=== PATIENT | male | born 1965 | race Caucasian/White ===

== ENCOUNTER → 2016-12-02 | Outpatient (CLI) | payer BC ==
--- NOTE | 2016-12-03 14:53 | PE ---
EXAMINATION TYPE: PET CT fusion skull to thigh DATE OF EXAM: 12/02/2016 12:54 PM COMPARISON: NONE Prior PET/CT: None at this location. HISTORY: Tonsil cancer TECHNIQUE: Following the intravenous administration of 12.7 mCi of F-18 FDG, whole body images are p erformed from the skull base to the midthigh. Images are reviewed on the computer in the coronal, ax ial, and sagittal planes. Reconstructed rotating images are created on independent workstation and r eviewed on the computer. A localization and attenuation correction CT is performed in conjunction w ith the PET scan. DLP: 461.58 and 64.03 mGycm SCAN: Initial Scan Blood glucose: 87 mg/dL Average Mediastinum SUV: 1.9 Average Liver SUV: 2.9 FINDINGS: NECK: There is increased uptake within the region of the right tonsil with an SUV of 7.2 compatible with neoplasm. There is increased uptake within the soft tissues just posterior to the left and right anterior mandible. This has an SUV value of 6 on the right and 7.2. Dedicated images were obtained through the head and neck. Uptake of these lymph nodes is between 2.5 and 3.3 on the right. This could reflect Inflammatory or early metastatic disease. THORAX: No abnormal uptake. ABDOMEN: No abnormal uptake PELVIS: No abnormal uptake OSSEOUS STRUCTURES: No abnormal uptake LOCALIZATION CT: Calcified granuloma within the right posterior base calcified lymphadenopathies medi astinum. There multiple lymph nodes within the parapharyngeal spaces bilaterally, greater on the righ t. These are nonspecific. COMPARISON: None IMPRESSION: 1. Increased uptake within the right tonsil compatible with the patient's reported tonsillar cancer. 2. Multiple lymph nodes within the parapharyngeal spaces, jugulodigastric, and carotid sheath regions bilaterally and nonspecific uptake. This is slightly greater on the right and early metastasis is no t excluded. 3. There is focal increased uptake within the soft tissues posterior to the left right portions of th e mandible apex. This is markedly intense uncertain etiology. Definite corresponding soft tissue abno rmality is not identified
== END | disposition home or self-care (01) ==
LOC: RADPETMAIN 10:21
PROVIDERS: ATTEND Otolaryngology
DX: C09.9 Malignant neoplasm of tonsil, unspecified (principal)
CPT/HCPCS: 78815; A9552

== ENCOUNTER 2016-12-22 15:09 | Day surgery (SDC) | payer BC ==
[2016-12-22 16:07] VITALS: RESP 16; TEMP 98.1
--- NOTE | 2016-12-22 16:17 | US ---
Ultrasound fine-needle aspiration lymph node HISTORY: Abnormal PET/CT Maximal barrier technique was utilized. Correlation to PET CT for November 2016 Ultrasound was used with sterile technique. The skin overlying the abnormal node in the right neck wa s localized with ultrasound and the overlying skin prepped and draped. Lidocaine used for local anest hesia. 5 passes with a 25-gauge needle were made into the node under direct ultrasound guidance and a spirated specimen submitted to cytology. Following the procedure hemostasis achieved. There is no imm ediate complication. Patient was discharged in stable. IMPRESSION: Status post ultrasound-guided fine-needle aspiration right-sided neck lymph node, patholo gy pending. This procedure performed by the undersigned.
[2016-12-22 16:22] VITALS: BP 133/83; PULSE 75
== END 2016-12-22 16:21 | disposition home or self-care (01) ==
LOC: RADPROMAIN 15:09
PROVIDERS: ATTEND Internal Medicine Hematology & Oncology
DX: R59.9 Enlarged lymph nodes, unspecified (principal); C09.1 Malignant neoplasm of tonsillar pillar (anterior) (posterior)
CPT/HCPCS: 10022; 38505; 76942; 88173; 88305

== ENCOUNTER 2017-01-14 00:15 | Observation (INO) | payer BC ==
[2017-01-14] MEDS ORDERED: ONDANSETRON 4 MG/2 ML VIAL IVP STA (00:37)
[2017-01-14] MEDS ORDERED: SODIUM CHLORIDE 0.9% 1,000 ML IV STA ×3 (00:37→01:38)
--- NOTE | 2017-01-14 00:37 | ED ---
Nausea/Vomiting/Diarrhea HPI - General Chief complaint: Nausea/Vomiting/Diarrhea Stated complaint: Nauseous/Dehydrated - Cancer Pt (RT) Time Seen by Provider: 01/14/17 00:36 Source: patient Mode of arrival: ambulatory Limitations: no limitations - History of Present Illness Initial comments: Patient is a 51-year-old male with chief complaint of dehydration and general fatigue. She reports that he is currently undergoing radiation treatment for tonsillar cancer. He reports he's had his tonsils removed and is going through radiation treatments. Next radiation treatment is Sunday. He states that over the past 3 days he is had a hard time swallowing anything and is had dry heaves. Patient reports that he has at home Zofran but it is not helping. Patient states he is diagnosed with oral thrush. He reports the Magic mouthwash his throat is painful with swallowing. states that over the past 2 days only had a boost shake to keep him hydrated. She reports that he has 2 weeks left of radiation treatment. Patient reports he just feels generally ill and fatigued. Denies any abdominal pain, fevers, chest pain, shortness of breath, headache, vision changes, dizziness or lightheadedness. He reports that he was only able to urinate a few drops earlier today. - Related Data Home Medications Medication Instructions Recorded Confirmed Cholecalciferol [Vitamin D3] 2,000 unit PO DAILY 12/22/16 01/14/17 Citalopram Hydrobromide [CeleXA] 20 mg PO DAILY 12/22/16 01/14/17 Ibuprofen [Motrin] 800 mg PO BID PRN 12/22/16 01/14/17 Levothyroxine Sodium [Synthroid] 25 mcg PO DAILY 12/22/16 01/14/17 Tamsulosin HCl [Flomax] 0.4 mg PO DAILY 12/22/16 01/14/17 Fluconazole [Diflucan] 100 mg PO DAILY 01/14/17 01/14/17 Hydrocodone/Acetaminophen [[place] 1 tab PO Q6HR PRN 01/14/17 01/14/17 5-325] Ondansetron [Zofran ODT] 8 mg PO Q8HR 01/14/17 01/14/17 Allergies Allergy/AdvReac Type Severity Reaction Status Date / Time No Known Allergies Allergy Verified 01/14/17 00:23 Review of Systems ROS Statement: Those systems with pertinent positive or pertinent negative responses have been documented in the HPI. ROS Other: All systems not noted in ROS Statement are negative. Past Medical History Past Medical History: Cancer, Hypertension, Prostate Disorder, Supraventricular Tachycardia (SVT), Thyroid Disorder Additional Past Medical History / Comment(s): RIGHT TONSIL CANCER. History of Any Multi-Drug Resistant Organisms: None Reported Past Surgical History: Orthopedic Surgery, Tonsillectomy Additional Past Surgical History / Comment(s): RIGHT TONSILLECTOMY. RIGHT HAND SURGERY. 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 Past Drug Use History: None Reported Additional Drug Use History / Comment(s): QUIT SMOKING IN 1999. - Past Family History Mother Family Medical History: No Reported History Father Family Medical History: Cancer Additional Family Medical History / Comment(s): PROSTATE CANCER. General Exam - General Exam Comments Initial Comments: Pleasant 31-year-old male. No distress. Limitations: no limitations General appearance: alert, in no apparent distress Head exam: Present: atraumatic, normocephalic, normal inspection Eye exam: Present: normal appearance, PERRL, EOMI. Absent: scleral icterus, conjunctival injection, periorbital swelling ENT exam: Present: mucous membranes moist. Absent: normal exam, normal oropharynx (Erythematous injected oropharynx. Patient has a white film over the oropharynx insistent with thrush.) Neck exam: Present: normal inspection. Absent: tenderness, meningismus, lymphadenopathy Respiratory exam: Present: normal lung sounds bilaterally. Absent: respiratory distress, wheezes, rales, rhonchi, stridor Cardiovascular Exam: Present: regular rate, normal rhythm, normal heart sounds. Absent: systolic murmur, diastolic murmur, rubs, gallop, clicks GI/Abdominal exam: Present: soft, normal bowel sounds. Absent: distended, tenderness, guarding, rebound, rigid Extremities exam: Present: normal inspection, full ROM, normal capillary refill. Absent: tenderness, pedal edema, joint swelling, calf tenderness Back exam: Present: normal inspection Neurological exam: Present: alert, oriented X3, CN II-XII intact Psychiatric exam: Present: normal affect, normal mood Skin exam: Present: warm, dry, intact, normal color. Absent: rash Course Vital Signs 01/14/17 00:20 Temperature 98.8 F Pulse Rate 92 Respiratory 18 Rate Blood Pressure 118/79 O2 Sat by Pulse 100 Oximetry Medical Decision Making - Medical Decision Making Pleasant 51-year-old male chief complaint of dehydration unable to tolerate fluids and dry heaving and nausea for 3 days. Patient is currently undergoing radiation treatments for tonsillar cancer. Patient states that he is also diagnosed with oral thrush. Patient states that he has only been able to have one boost shake throughout the whole day today. Patient continues to dry heave feel nauseated. Patient was given 2 L bolus and lab work was obtained. Patient did have elevated BUN/creatinine of being a 26 any 1.3. Patient states that Dr. Ezequiel Green and [facility] during his radiation treatments. Patient continues to dry heave and feel nauseated despite Zofran and Reglan and Benadryl. Patient was then started on maintenance rates 150 cc an hour. Discussed the case with Dr. Rosen. I feel is he needs to be monitored for the next 24 hours for hydration and pain management. Patient is concerned that he will not be able to be discharged by Sunday for his radiation treatments. He is concerned if he misses when he would have to start over again. Patient agrees to being admitted at this time for nausea medication and IV hydration. - Lab Data Result diagrams: 01/14/17 00:59 01/14/17 00:59 Lab Results 01/14/17 01/14/17 01/14/17 Range/Units 00:59 00:59 00:59 WBC 4.8 (3.8-10.6) k/uL RBC 5.59 (4.30-5.90) m/uL Hgb 16.7 (13.0-17.5) gm/dL Hct 49.3 (39.0-53.0) % MCV 88.1 (80.0-100.0) fL MCH 29.8 (25.0-35.0) pg MCHC 33.8 (31.0-37.0) g/dL RDW 13.6 (11.5-15.5) % Plt Count 208 (150-450) k/uL Neutrophils % 75 % Lymphocytes % 7 % Monocytes % 10 % Eosinophils % 4 % Basophils % 1 % Neutrophils # 3.6 (1.3-7.7) k/uL Lymphocytes # 0.4 L (1.0-4.8) k/uL Monocytes # 0.5 (0-1.0) k/uL Eosinophils # 0.2 (0-0.7) k/uL Basophils # 0.1 (0-0.2) k/uL Sodium 141 (137-145) mmol/L Potassium 4.4 (3.5-5.1) mmol/L Chloride 102 (98-107) mmol/L Carbon Dioxide 25 (22-30) mmol/L Anion Gap 14 mmol/L BUN 26 H (9-20) mg/dL Creatinine 1.30 H (0.66-1.25) mg/dL Est GFR (MDRD) Af Amer >60 (>60 ml/min/1.73 sqM) Est GFR (MDRD) Non-Af 58 (>60 ml/min/1.73 sqM) Glucose 104 H (74-99) mg/dL Calcium 10.0 (8.4-10.2) mg/dL Total Bilirubin 1.1 (0.2-1.3) mg/dL AST 28 (17-59) U/L ALT 47 (21-72) U/L Alkaline Phosphatase 71 (38-126) U/L Total Protein 7.7 (6.3-8.2) g/dL Albumin 4.3 (3.5-5.0) g/dL Amylase 73 (30-110) U/L Lipase 217 (23-300) U/L Urine Color Yellow Urine Appearance Clear (Clear) Urine pH 6.5 (5.0-8.0) Ur Specific [place] 1.026 (1.001-1.035) Urine Protein 1+ H (Negative) Urine Glucose (UA) Negative (Negative) Urine Ketones Negative (Negative) Urine Blood Negative (Negative) Urine Nitrite Negative (Negative) Urine Bilirubin Negative (Negative) Urine Urobilinogen 2.0 (<2.0) mg/dL Ur Leukocyte Esterase Small H (Negative) Urine RBC <1 (0-5) /hpf Urine WBC 22 H (0-5) /hpf Ur Squamous Epith Cells <1 (0-4) /hpf Hyaline Casts 3 H (0-2) /lpf Urine Mucus Many H (None) /hpf Disposition Clinical Impression: Tonsillar cancer, Dehydration due to radiation, Nausea & vomiting Disposition: ADMITTED IP TO THIS HOSP Condition: Stable Time of Disposition: 02:36
[2017-01-14 01:11] LABS: Basophils # (A) 0.1 k/uL (0-0.2); Basophils % (A) 1 %; CH 30.3; CHCM 34.5; Eosinophils # (A) 0.2 k/uL (0-0.7); Eosinophils % (A) 4 %; HCT 49.3 % (39.0-53.0); HDW 2.47; HGB 16.7 gm/dL (13.0-17.5); Luc # (Auto) 0.14; Luc % (Auto) 3; Lymphocytes # (A) 0.4 k/uL (1.0-4.8); Lymphocytes % (A) 7 %; MCH 29.8 pg (25.0-35.0); MCHC 33.8 g/dL (31.0-37.0); MCV 88.1 fL (80.0-100.0); Mean Platelet Volume 7.3; Monocytes # (A) 0.5 k/uL (0-1.0); Monocytes % (A) 10 %; Neutrophils # (A) 3.6 k/uL (1.3-7.7); Neutrophils % (A) 75 %; RBC 5.59 m/uL (4.30-5.90); RDW 13.6 % (11.5-15.5); WBC 4.8 k/uL (3.8-10.6); WBC (Perox) 4.68
[2017-01-14 01:18] LABS: Appearance,Urine Clear (Clear); Bilirubin,Urine Negative (Negative); Glucose,Urine (UA) Negative (Negative); Ketones,Urine Negative (Negative); Leukocyte Esterase,Urine Small (Negative); Mucus,Urine Many /hpf; Nitrite,Urine Negative (Negative); PH, Urine 6.5 (5.0-8.0); Particle Count 10766; Protein,Urine 1+ (Negative); RBC,Urine <1 /hpf (0-5); Specific Gravity,Urine 1.026 (1.001-1.035); Squamous Epithelial Cell,Urine <1 /hpf (0-4); UA Billing (MACRO vs. MICRO) MICRO; WBC,Urine 22 /hpf (0-5)
[2017-01-14 01:25] LABS: ALT 47 U/L (21-72); AST 28 U/L (17-59); Alkaline Phosphatase 71 U/L (38-126); Amylase 73 U/L (30-110); Anion Gap 14 mmol/L; Blood Urea Nitrogen 26 mg/dL (9-20); Carbon Dioxide 25 mmol/L (22-30); Chloride 102 mmol/L (98-107); Glucose 104 mg/dL (74-99); Non-African American GFR(MDRD) 58 (>60 ml/min/1.73 sqM); Potassium 4.4 mmol/L (3.5-5.1); Sodium 141 mmol/L (137-145); Total Bilirubin 1.1 mg/dL (0.2-1.3); Total Protein 7.7 g/dL (6.3-8.2)
[2017-01-14] MEDS ORDERED: METOCLOPRAMIDE 5 MG/ML 2 ML VIAL IVP STA (01:49)
[2017-01-14] MEDS ORDERED: diphenhydrAMINE 50 MG/ML 1 ML VIAL IVP STA (01:49)
[2017-01-14] MEDS ORDERED: HYDROmorphone 1 MG/ML 1 ML SYRINGE IVP STA (02:20)
[2017-01-14] MEDS ORDERED: LIDOCAINE VISCOUS 300 MG/15 ML CUP MUCOUS MEM ONE (02:28)
[2017-01-14] MEDS ORDERED: BENZOCAINE/MENTHOL LOZENG 1 EACH LOZENGE MUCOUS MEM PRN (02:39)
[2017-01-14] MEDS ORDERED: HYDROmorphone 1 MG/ML 1 ML SYRINGE IV PRN (02:39)
[2017-01-14] MEDS ORDERED: NALOXONE 0.4 MG/ML 1 ML VIAL IV PRN (02:39)
[2017-01-14] MEDS ORDERED: ONDANSETRON 4 MG/2 ML VIAL IVP PRN (02:39)
[2017-01-14] MEDS ORDERED: KETOROLAC 30 MG/ML 1 ML VIAL IVP PRN (02:39)
[2017-01-14] MEDS: SODIUM CHLORIDE 0.9% 1,000 ML IV SCH ×4 (02:43→20:53)
[2017-01-14] MEDS: LEVOTHYROXINE 25 MCG TAB PO SCH (08:22)
[2017-01-14] MEDS: FLUCONAZOLE 100 MG TAB PO SCH (08:22)
[2017-01-14] MEDS: CITALOPRAM HYDROBROMIDE 20 MG TAB PO SCH (08:22)
[2017-01-14] MEDS: TAMSULOSIN 0.4 MG CAP.ER.24H PO SCH (09:38)
[2017-01-14] MEDS: ACETAMINOPHEN TAB 325 MG TAB PO PRN ×2 (10:04→19:30)
--- NOTE | 2017-01-14 12:42 | HP ---
DATE OF ADMISSION: 01/14/2017 CHIEF COMPLAINT: Nausea and dehydration with decreased oral intake. HISTORY OF PRESENT ILLNESS: This is a 51-year-old male with recent diagnosis of tonsillar cancer back in November 2016, status post tonsillectomy and radiation therapy, presents to the hospital with intractable nausea, discomfort to his throat, and dehydration. In the ER, the patient was extremely dehydrated on physical examination with evidence of increase in creatinine and BUN. Started on IV fluid and admitted to the medical floor. Patient currently said that he feels much better after receiving the fluid, but still not able to drink or eat, given the pain in his throat. Patient said that he shelter from the end of his radiation, followed by the surgery, and said that margins from the previous surgery were clear. PET scan was done by Dr. Watts who said that there is a suspicious lymph node, multiple biopsies were obtained from that lymph node that came back negative. The decision was made to continue only with 35 sessions of radiations and no chemo after that. The patient lost 30 pounds over the last 2 months and said that he is still able to take his Ensure but very difficult for regular food. Patient currently complaining of headache, but said that it came just because of not being able to sleep during the night with his new environment in the hospital. The patient required no pain medication and said that he would rather go home in the morning after finishing his fluid infusion. REVIEW OF SYSTEMS: All 14 systems reviewed and negative except as above. HOME MEDICATIONS: 1. Vitamin D. 2. Celexa. 3. Ibuprofen. 4. Flomax. 5. Levothyroxine. 6. Diflucan. 7. Home as needed. 8. Zofran. ALLERGIES: No known drug allergies. PAST MEDICAL AND SURGICAL HISTORY: 1. Tonsillar cancer diagnosed in November 2016. 2. Hypertension. 3. Benign prostatic hypertrophy. 4. Supraventricular tachycardia status post ablation in early . 5. Half of his thyroid was resected with residual hypothyroidism. 6. Tonsillectomy due to right tonsillar cancer. 7. Left hand surgery. 8. Anxiety. SOCIAL HISTORY: Patient quit cigarettes 20 years ago. Denied alcohol or drug abuse. FAMILY HISTORY: Father with prostate cancer. PHYSICAL EXAMINATION: VITAL SIGNS: Reviewed and stable. HEENT: Atraumatic, normocephalic. PERRLA. NECK: Supple, no masses. No thyromegaly. LUNGS: Clear to auscultation bilaterally. HEART: Normal S1, S2. ABDOMEN: Soft, no tenderness, positive bowel sounds in all 4 quadrants. EXTREMITIES: Lower extremity no edema. SKIN: No rash. NEURO: Intact. Cranial nerves 2 through 12 intact. Normal deep tendon reflexes and sensation. PSYCH: Alert, and oriented x3. IMAGING AND LABS: CBC normal. Chem-7 showed slight elevation and creatinine at 1.30, BUN 26, glucose 104. Liver function tests within acceptable range. ASSESSMENT AND PLAN: 1. Intractable nausea and dehydration. We will continue with Zofran as needed. Will continue with aggressive hydration and we will follow-up on patient's blood work in the morning. We will consider discharging patient at 9:00 in the morning given the radiation scheduled for 3 in the afternoon. Plan discussed with the patient who agreed to the above. 2. Mild acute kidney injury. We will continue monitoring. Repeat blood work in the morning. 3. Tonsillar cancer, status post resection with radiation therapy, to be followed by Dr. Watts as outpatient. 4. Hypothyroidism. Continue home medication. 5. Hypertension, under fair control. 6. Benign prostatic hypertrophy. Will continue with the Flomax. 7. Anxiety. Will continue with Celexa. 8. Discharge planning in the morning after done with hydration and encourage oral intake at this point.
[2017-01-14 22:09] VITALS: TEMP 98.3
[2017-01-15] MEDS: SODIUM CHLORIDE 0.9% 1,000 ML IV SCH (03:30)
[2017-01-15 07:53] LABS: Anion Gap 6 mmol/L; Blood Urea Nitrogen 18 mg/dL (9-20); Calcium 8.3 mg/dL (8.4-10.2); Carbon Dioxide 25 mmol/L (22-30); Chloride 108 mmol/L (98-107); Glucose 92 mg/dL (74-99); Non-African American GFR(MDRD) >60 (>60 ml/min/1.73 sqM); Potassium 4.7 mmol/L (3.5-5.1); Sodium 139 mmol/L (137-145)
[2017-01-15] MEDS: LEVOTHYROXINE 25 MCG TAB PO SCH (08:00)
[2017-01-15] MEDS: CITALOPRAM HYDROBROMIDE 20 MG TAB PO SCH (08:00)
[2017-01-15] MEDS: TAMSULOSIN 0.4 MG CAP.ER.24H PO SCH (08:00)
[2017-01-15] MEDS: FLUCONAZOLE 100 MG TAB PO SCH (08:01)
[2017-01-15 08:54] VITALS: BP 105/64; PULSE 61; RESP 18
--- NOTE | 2017-01-15 14:39 | P.DS ---
Providers Date of admission: 01/14/17 03:00 Expected date of discharge: 01/15/17 Attending physician: Christina Gongora Primary care physician: Jacques Montesinos [facility] Course: This is a 51-year-old male patient of Dr. Jacques Montesinos with a past medical history of tonsillar cancer diagnosed in November 2016, hypertension, benign prostatic hypertrophy, supraventricular tachycardia status post ablation in the , anxiety. Patient is status post tonsillectomy and radiation therapy and presented to the hospital with intractable nausea, discomfort in his throat and dehydration. Patient was extremely dehydrated and on physical exam was found to have increased creatinine and BUN. He was started on IV fluids and admitted to the [facility] floor. He has not been able to eat or drink due to pain in his throat. He is currently alf through his radiation treatments. PET scan was done by Dr. Maria and found a suspicious lymph node, multiple biopsies were obtained from the lymph node came back negative. The decision was made to continue only with 35 sessions of radiation and no chemo after that. The patient has lost 30 pounds over the past 2 months. He is able to take in Ensure but difficult to eat regular food. He is also complaining of headache. 01/15: Patient is scheduled for radiation therapy this afternoon. Patient is eating his diet and tolerating. Nausea is improved. Patient continues to have discomfort in his throat. Patient will be discharged today in stable condition. Discharge diagnoses: 1. Intractable nausea and dehydration. 2. Acute kidney injury 3. Tonsillar cancer status post resection and radiation therapy followed by Dr. Watts. 4. Hypothyroidism. 5. Hypertension. 6. Benign prostatic hypertrophy. 7. Generalized anxiety disorder. Discharge plan: Return home Impression and plan of care have been directed as dictated by the signing physician. Shu Wall nurse practitioner acting as scribe for signing physician. Cc: Dr. Jacques Montesinos Patient Condition at Discharge: Good Plan - Discharge Summary Discharge Medication List Cholecalciferol [Vitamin D3] 2,000 unit PO DAILY 12/22/16 [History] Citalopram Hydrobromide [CeleXA] 20 mg PO DAILY 12/22/16 [History] Levothyroxine Sodium [Synthroid] 25 mcg PO DAILY 12/22/16 [History] Tamsulosin HCl [Flomax] 0.4 mg PO DAILY 12/22/16 [History] Fluconazole [Diflucan] 100 mg PO DAILY 01/14/17 [History] Hydrocodone/Acetaminophen [[place] 5-325] 1 tab PO Q6HR PRN 01/14/17 [History] Magic Mouthwash 10 ml PO TID 01/14/17 [History] Ondansetron [Zofran ODT] 8 mg PO Q8HR 01/14/17 [History] Follow up Appointment(s)/Referral(s): Jacques Montesinos MD [Primary Care Provider] - 01/22/17 1:45 pm Kellie Watts MD [STAFF PHYSICIAN] - 02/02/17 12:45 pm Patient Instructions/Handouts: Oral Candidiasis (GEN), Acute Nausea and Vomiting (DC) Discharge Disposition: HOME SELF-CARE
== END 2017-01-15 12:25 | disposition home or self-care (01) ==
LOC: EC 00:15 → 5ONC 03:00
PROVIDERS: ADMIT Internal Medicine; ATTEND Internal Medicine
DX: E86.0 Dehydration (principal); N17.9 Acute kidney failure, unspecified; C09.9 Malignant neoplasm of tonsil, unspecified; Z87.891 Personal history of nicotine dependence; Z92.3 Personal history of irradiation; B37.0 Candidal stomatitis; Z79.899 Other long term (current) drug therapy; I10 Essential (primary) hypertension; Z80.42 Family history of malignant neoplasm of prostate; N40.0 Benign prostatic hyperplasia without lower urinary tract symptoms; E89.0 Postprocedural hypothyroidism; F41.1 Generalized anxiety disorder
CPT/HCPCS: 96374 ×2; 96375 ×4; 96361 ×2; 99284 ×2; 36415; 80053; 80048; 82150; 83690; 85025; 81001; G0378 ×2; J1200; J2765; J2405; J1170

== ENCOUNTER → 2017-08-11 | Outpatient (CLI) | payer BC ==
--- NOTE | 2017-08-12 14:13 | PE ---
Nuclear medicine PET/CT HISTORY: Head and neck cancer, subsequent Patient received 14.6 mCi F-18 FDG intravenously in delayed scanning was performed from the skull bas e to the mid thighs. Localization and attenuation correction CT scan was performed. Correlation to prior nuclear medicine PET/CT 12/02/2016 Head and neck: There is some uptake noted in the supraclavicular region on the right and along some i nfrahyoid nodes deep to the sternocleidomastoid muscle on the right without clear enlargement of the nodes, SUV 3.4-6 on the right. The previously identified uptake along the palatine tonsils has improv ed. Some mild uptake along the tongue may be physiologic. CHEST: Evidence of old granulomatous disease present. No suspicious hypermetabolic uptake. No evident lung mass. Calcified nodule present in the right lower lobe is again seen, there are calcified media stinal nodes. Abdomen pelvis: No adrenal mass or retroperitoneal adenopathy. No suspicious hypermetabolic uptake. N o evident ascites. Left inguinal indirect hernia noted incidentally. IMPRESSION: Uptake is mild within the right neck as described. There is improvement in the palatine t onsil uptake.
== END ==
LOC: RADPETMAIN 07:15
PROVIDERS: ATTEND Radiology Radiation Oncology
DX: C09.9 Malignant neoplasm of tonsil, unspecified (principal)
CPT/HCPCS: 78815; A9552

== ENCOUNTER 2018-09-25 18:51 | Emergency (ER) | payer BC ==
[2018-09-25 19:13] VITALS: TEMP 97.2
--- NOTE | 2018-09-25 20:02 | ED ---
General Adult HPI - General Chief complaint: Overdose Stated complaint: INGESTED PESTICIDE ON ACCIDENT Source: patient Mode of arrival: ambulatory Limitations: no limitations - History of Present Illness Initial comments: Dictation was produced using [employer] dictation software. please excuse any grammatical, word or spelling errors. Chief Complaint: 53-year-old malePast medical history presents after small ingestion of pesticide. History of Present Illness: 53-year-old male. He accidentally ingested approximately 1 ounce of pesticide. States that he keeps his pesticide and water bottle. Patient does not have any suicidal or homicidal ideation. Patient denies any symptoms of the time. The ROS documented in this emergency department record has been reviewed and confirmed by me. Those systems with pertinent positive or negative responses have been documented in the HPI. All other systems are other negative and/or noncontributory. - Related Data Home Medications Medication Instructions Recorded Confirmed Citalopram Hydrobromide [CeleXA] 20 mg PO DAILY 12/22/16 09/25/18 Tamsulosin HCl [Flomax] 0.4 mg PO DAILY 12/22/16 09/25/18 Ibuprofen [Motrin] 600 mg PO Q8HR PRN 09/25/18 09/25/18 Levothyroxine Sodium [Synthroid] 75 mcg PO DAILY 09/25/18 09/25/18 Allergies Allergy/AdvReac Type Severity Reaction Status Date / Time No Known Allergies Allergy Verified 09/25/18 19:37 Review of Systems ROS Statement: Those systems with pertinent positive or pertinent negative responses have been documented in the HPI. ROS Other: All systems not noted in ROS Statement are negative. Past Medical History Past Medical History: Cancer, Hypertension, Prostate Disorder, Supraventricular Tachycardia (SVT), Thyroid Disorder Additional Past Medical History / Comment(s): RIGHT TONSIL CANCER. History of Any Multi-Drug Resistant Organisms: None Reported Past Surgical History: Orthopedic Surgery, Tonsillectomy Additional Past Surgical History / Comment(s): RIGHT TONSILLECTOMY. LEFT HAND SURGERY. Thyroid Surgery. 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 General Exam - General Exam Comments Initial Comments: PHYSICAL EXAM: General Impression: Alert and oriented x3, not in acute distress HEENT: Normocephalic atraumatic, extra-ocular movements intact, pupils equal and reactive to light bilaterally, mucous membranes moist. Cardiovascular: Heart regular rate and rhythm, S1&S2 audible, no murmurs, rubs or gallops Chest: Lungs clear to auscultation bilaterally, no rhonchi, no wheeze, no rales Abdomen: Bowel sounds present, abdomen soft, non-tender, non-distended, no organomegaly Musculoskeletal: Pulses present and equal in all extremities, no peripheral edema Motor: Power 5/5 bilaterally, no focal deficits noted Neurological: CN II-XII grossly intact, no focal motor or sensory deficits noted Skin: Intact with no visualized rashes Psych: Normal affect and mood Limitations: no limitations Course Vital Signs 09/25/18 09/25/18 19:09 19:45 Temperature 97.2 F L Pulse Rate 62 66 Respiratory 18 20 Rate Blood Pressure 144/90 137/95 O2 Sat by Pulse 99 97 Oximetry Medical Decision Making - Medical Decision Making ED course: 53-year-old male presents after small amount of pesticide ingestion. Upon arrival are within acceptable limits. Patient does not have any symptoms of toxidrome. Patient case was discussed with poison control who recommended observation after by mouth trial. Time of ingestion was approximately 1 hour prior to arrival. Vision observed in emergency department for one hour. Patient reports improvement of symptoms. Patient clear for discharge. Told to return with any worsening symptoms. Disposition Clinical Impression: Accidental drug ingestion Disposition: HOME SELF-CARE Condition: Good Is patient prescribed a controlled substance at d/c from ED?: No Referrals: Jacques Montesinos MD [Primary Care Provider] - 1-2 days Time of Disposition: 20:41
[2018-09-25 21:11] VITALS: BP 127/89; PULSE 56; RESP 18
== END 2018-09-25 21:11 | disposition home or self-care (01) ==
LOC: EC 18:51
DX: T60.91XA Toxic effect of unspecified pesticide, accidental (unintentional), initial encounter (principal); E07.9 Disorder of thyroid, unspecified; N42.9 Disorder of prostate, unspecified; F41.9 Anxiety disorder, unspecified; Z87.891 Personal history of nicotine dependence; Z79.899 Other long term (current) drug therapy; Z85.818 Personal history of malignant neoplasm of other sites of lip, oral cavity, and pharynx; Z92.3 Personal history of irradiation; Z90.89 Acquired absence of other organs
CPT/HCPCS: 99283

== ENCOUNTER 2024-09-07 22:00 | Emergency (ER) | payer BC ==
[2024-09-07 22:04] VITALS: RESP 18; TEMP 98.2
--- NOTE | 2024-09-07 22:07 | ED ---
Chest Pain HPI - General Chief Complaint: Chest Pain Stated Complaint: Chest pain Time Seen by Provider: 09/07/24 22:06 Source: patient, RN notes reviewed, old records reviewed Mode of arrival: ambulatory Limitations: no limitations - History of Present Illness Initial Comments: This is a 59-year-old male to the ER today for evaluation patient presents today for evaluation of chest pain chest pain answered prior to arrival left-sided chest to the back, abdomen. Patient thinks he may have history of high blood pressure but no medical history otherwise remote history of smoking no significant family history of heart disease. Patient of course is concerned for his heart with left-sided chest pain currently although pain here in the ER is mildly improved MD Complaint: chest pain -: hour(s) Onset: during rest Pain Location: left chest Pain Radiation: LUE, back, jaw/teeth Severity: mild Severity scale (1-10): 3 Quality: tightness Consistency: constant Improves With: nothing, eating Anginal Symptoms: sense of impending doom Other Symptoms: palpitations Treatments Prior to Arrival: none - Related Data Home Medications Medication Instructions Recorded Confirmed Citalopram Hydrobromide [CeleXA] 20 mg PO DAILY 12/22/16 09/25/18 Tamsulosin HCl [Flomax] 0.4 mg PO DAILY 12/22/16 09/25/18 Ibuprofen [Motrin] 600 mg PO Q8HR PRN 09/25/18 09/25/18 Levothyroxine Sodium [Synthroid] 75 mcg PO DAILY 09/25/18 09/25/18 Allergies Allergy/AdvReac Type Severity Reaction Status Date / Time No Known Allergies Allergy Verified 09/07/24 22:04 Review of Systems ROS Statement: Those systems with pertinent positive or pertinent negative responses have been documented in the HPI. ROS Other: All systems not noted in ROS Statement are negative. EKG Findings - EKG Comments: EKG Findings:: EKG is sinus 65 NM 191 QRS 98 QTc 423 - EKG Results: EKG: interpreted by JATINDER Past Medical History Past Medical History: Cancer, Hypertension, Prostate Disorder, Supraventricular Tachycardia (SVT), Thyroid Disorder Additional Past Medical History / Comment(s): RIGHT TONSIL CANCER. History of Any Multi-Drug Resistant Organisms: None Reported Past Surgical History: Orthopedic Surgery, Tonsillectomy Additional Past Surgical History / Comment(s): RIGHT TONSILLECTOMY. LEFT HAND SURGERY. Thyroid Surgery. 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 General Exam Limitations: no limitations General appearance: alert, in no apparent distress Head exam: Present: atraumatic, normocephalic, normal inspection Eye exam: Present: normal appearance, PERRL, EOMI. Absent: scleral icterus, conjunctival injection, periorbital swelling ENT exam: Present: normal exam, mucous membranes moist Neck exam: Present: normal inspection. Absent: tenderness, meningismus, lymphadenopathy Respiratory exam: Present: normal lung sounds bilaterally. Absent: respiratory distress, wheezes, rales, rhonchi, stridor Cardiovascular Exam: Present: regular rate, normal rhythm, normal heart sounds. Absent: systolic murmur, diastolic murmur, rubs, gallop, clicks GI/Abdominal exam: Present: soft, normal bowel sounds. Absent: distended, tenderness, guarding, rebound, rigid Extremities exam: Present: normal inspection, full ROM, normal capillary refill. Absent: tenderness, pedal edema, joint swelling, calf tenderness Back exam: Present: normal inspection Neurological exam: Present: alert, oriented X3, CN II-XII intact Psychiatric exam: Present: normal affect, normal mood Skin exam: Present: warm, dry, intact, normal color. Absent: rash Course Vital Signs 09/07/24 09/08/24 22:01 02:09 Temperature 98.2 F Pulse Rate 74 51 L Respiratory 18 18 Rate Blood Pressure 151/89 121/68 O2 Sat by Pulse 96 95 Oximetry - Reevaluation(s) Reevaluation #1: 09/07/24 22:51 Medical records reviewed Reevaluation #2: 09/07/24 23:07 Patient's chest pain is improved here in the ER Reevaluation #3: 09/07/24 23:07 Patient informed of results and questions answered Reevaluation #4: Was pt. sent in by a medical professional or institution (, PA, [employer], urgent care, hospital, or senior living...) When possible be specific @ -no Did you speak to anyone other than the patient for history (EMS, parent, family, police, friend...)? What history was obtained from this source @ -no Did you review nursing and triage notes (agree or disagree)? Why? @ -agree Are old charts reviewed (outside hosp., previous admission, EMS record, old EKG, old radiological studies, urgent care reports/EKG's, senior living records)? Report findings @ -yes Differential Diagnosis (chest pain, altered mental status, abdominal pain women, abdominal pain men, vaginal bleeding, weakness, fever, dyspnea, syncope, headache, dizziness, GI bleed, back pain, seizure, CVA, palpatations, mental health, musculoskeletal)? @ -prior EKG interpreted by me (3pts min.). @ -yes X-rays interpreted by me (1pt min.). @ -yes negative for acute disease CT interpreted by me (1pt min.). @ -no U/S interpreted by me (1pt. min.). @ -no What testing was considered but not performed or refused? (CT, X-rays, U/S, labs)? Why? @ -none What meds were considered but not given or refused? Why? @ -none Did you discuss the management of the patient with other professionals (professionals i.e. , PA, [employer], lab, RT, psych nurse, social worker masters, transit operations supervisor, teacher, light armored reconnaissance officer, pillowcase sewer)? Give summary @ -no Was smoking cessation discussed for >3mins.? @ -no Was critical care preformed (if so, how long)? @ -no Were there social determinants of health that impacted care today? How? (Homelessness, low income, unemployed, alcoholism, drug addiction, transportation, low edu. Level, literacy, decrease access to med. care, fpc, rehab)? @ -none Was there de-escalation of care discussed even if they declined (Discuss DNR or withdrawal of care, Hospice)? DNR status @ -no What co-morbidities impacted this encounter? (DM, HTN, Smoking, COPD, CAD, Cancer, CVA, ARF, Chemo, Hep., AIDS, mental health diagnosis, sleep apnea, morbid obesity)? @ -none Was patient admitted / discharged? Hospital course, mention meds given and route, prescriptions, significant lab abnormalities, going to OR and other pertinent info. @ - 58-year-old male to ER for evaluation of chest pain left-sided chest pain jaw back abdomen. Patient has normal D-dimer normal EKG normal x-ray normal troponin x 2 and can be discharged home Discharge Undiagnosed new problem with uncertain prognosis? @ -no Drug Therapy requiring intensive monitoring for toxicity (Heparin, Nitro, Insulin, Cardizem)? @ -no Were any procedures done? @ -no Diagnosis/symptom? @ -Chest pain Acute, or Chronic, or Acute on Chronic? @ -Acute Uncomplicated (without systemic symptoms) or Complicated (systemic symptoms)? @ -Complicated Side effects of treatment? @ -no Exacerbation, Progression, or Severe Exacerbation? @ -exacerbation Poses a threat to life or bodily function? How? (Chest pain, [place], [place], pneumonia, PE, COPD, DKA, ARF, appy, cholecystitis, CVA, Diverticulitis, Homicidal, Suicidal, threat to staff... and all critical care pts) @ -yes with chest pain Reevaluation #5: Differential Chest Pain: Stable Angina, Unstable Angina, STEMI, NSTEMI Aortic Dissection, Pneumothorax, Musculoskeletal, Esophageal Spasm GERD, Cholecystitis, Pancreatitis, Zoster, this is not meant to be an all-inclusive list. Chest Pain MDM - [facility] 58-year-old male to ER for evaluation of chest pain left-sided chest pain jaw back abdomen. Patient has normal D-dimer normal EKG normal x-ray normal troponin x 2 and can be discharged home Disposition Clinical Impression: Chest pain Disposition: HOME SELF-CARE Condition: Undetermined Instructions (If sedation given, give patient instructions): Chest Pain (ED) Is patient prescribed a controlled substance at d/c from ED?: No Referrals: Jacques Montesinos [Primary Care Provider] - 1-2 days Time of Disposition: 01:30
[2024-09-07 22:25] LABS: Basophils # (A) 0.1 k/uL (0-0.2); Basophils % (A) 1 %; Eosinophils # (A) 0.2 k/uL (0-0.7); Eosinophils % (A) 4 %; HCT 44.2 % (39.0-53.0); HGB 14.8 gm/dL (13.0-17.5); Lymphocytes # (A) 1.4 k/uL (1.0-4.8); Lymphocytes % (A) 23 %; MCH 29.6 pg (25.0-35.0); MCHC 33.5 g/dL (31.0-37.0); MCV 88.3 fL (80.0-100.0); Mean Platelet Volume 7.5; Monocytes # (A) 0.6 k/uL (0-1.0); Monocytes % (A) 9 %; Neutrophils # (A) 3.7 k/uL (1.3-7.7); Neutrophils % (A) 60 %; Platelet Count 257 k/uL (150-450); RBC 5.01 m/uL (4.30-5.90); RDW 13.7 % (11.5-15.5); WBC 6.1 k/uL (3.8-10.6)
[2024-09-07 22:37] LABS: INR 0.9 (<1.2); Partial Thromboplastin Time 26.3 sec (22.0-30.0); Prothrombin Time 10.1 sec (10.0-12.5)
[2024-09-07 22:46] LABS: ALT 35 U/L (4-49); AST 32 U/L (17-59); African American GFR (CKD) >90 (>60 ml/min/1.73 sqM); Albumin 4.1 g/dL (3.5-5.0); Alkaline Phosphatase 72 U/L (38-126); Anion Gap 5 mmol/L; Blood Urea Nitrogen 32 mg/dL (9-20); Calcium 9.1 mg/dL (8.4-10.2); Carbon Dioxide 23 mmol/L (22-30); Chloride 110 mmol/L (98-107); Glucose 102 mg/dL (74-99); Lipase 362 U/L (23-300); Magnesium 2.1 mg/dL (1.6-2.3); Non-African American GFR(CKD) 79 (>60 ml/min/1.73 sqM); Potassium 4.2 mmol/L (3.5-5.1); Sodium 138 mmol/L (137-145); Total Bilirubin 0.4 mg/dL (0.2-1.3); Total Protein 6.9 g/dL (6.3-8.2)
[2024-09-07 22:54] LABS: NT-Pro-B-Type Natriuretic Pept 94 pg/mL
--- NOTE | 2024-09-08 00:24 | XR ---
EXAM: XR Chest, 2 Views CLINICAL HISTORY: ITS.REASON XR Reason: Chest Pain TECHNIQUE: Frontal and lateral views of the chest. COMPARISON: No previous studies. FINDINGS: Lungs: There is a 1.5 cm indeterminate nodule at the right cardiophrenic angle. No consolidation. Pleural space: Unremarkable. No pneumothorax. Heart: Cardiomegaly. Mediastinum: Unremarkable. Normal mediastinal contour. Bones/joints: Moderate degenerative disc disease of the thoracic spine. No acute fracture. Vasculature: Atherosclerotic disease. Other findings: Hypoaeration. IMPRESSION: 1. 1.5 cm indeterminate nodule the right cardiophrenic angle. CT imaging of the chest is highly advised to further assessment. 2. Cardiomegaly.
[2024-09-08 02:10] VITALS: BP 121/68; PULSE 51
== END 2024-09-08 02:24 | disposition home or self-care (01) ==
LOC: EC 22:00
DX: R07.89 Other chest pain (principal)
CPT/HCPCS: 36415; 71046; 80053; 83690; 83735; 83880; 84484; 85025; 85379; 85610; 85730; 93005; 99285